=== PATIENT | female | born 1970 | race Caucasian/White ===

== ENCOUNTER → 2024-03-12 17:02 | Outpatient (REF) | payer OTHER, SELFPAY | LOC: HWRAD 17:02 | PROVIDERS: ATTENDING PHYSICIAN Internal Medicine Gastroenterology; FAMILY PHYSICIAN Family Medicine | DX: K59.00 Constipation, unspecified (principal) | CPT/HCPCS: 74018 ==

== ENCOUNTER 2024-04-08 06:21 | Day surgery (SDC) | payer OTHER, SELFPAY | END 2024-04-08 15:30 | disposition home or self-care (01) | LOC: GI 06:21 | PROVIDERS: ATTENDING PHYSICIAN Internal Medicine Gastroenterology | DX: R93.3 Abnormal findings on diagnostic imaging of other parts of digestive tract (principal); K64.8 Other hemorrhoids; K57.30 Diverticulosis of large intestine without perforation or abscess without bleeding; K63.5 Polyp of colon; K51.30 Ulcerative (chronic) rectosigmoiditis without complications | CPT/HCPCS: 45380; 88305 ==

== ENCOUNTER 2024-04-29 10:40 | Inpatient (IN) | payer OTHER, SELFPAY ==
[2024-04-22 09:07] LABS: Hematocrit 40.9 % (37.0-47.0); Hemoglobin 13.8 g/dL (12.0-16.0); Mean Corp Hgb Conc. 33.7 g/dL (33.0-37.0); Mean Corpuscular Hgb 29.2 pg (27.0-31.0); Mean Corpuscular Volume 86.5 fL (81.0-99.0); Mean Platelet Volume 9.5 fL (7.4-10.4); Platelet Count 288 10^3/uL (130-400); Red Blood Cell Count 4.73 10^6/uL (4.20-5.40); Red Cell Dist. Width 13.4 % (11.5-14.5); White Blood Cell Count 6.3 10^3/uL (4.8-10.8)
[2024-04-22 09:14] LABS: INR 0.84
[2024-04-22 09:15] LABS: APTT 28.5 Sec (23.4-35.0)
[2024-04-22 10:12] LABS: ALT (SGPT) 25 U/L (0-35); AST (SGOT) 25 U/L (14-36); Albumin 4.5 g/dl (3.5-5.0); Alkaline Phosphatase 89 U/L (38-126); Blood Urea Nitrogen 12 mg/dl (7-17); Calcium 9.6 mg/dl (8.4-10.2); Carbon Dioxide 29 mmol/L (22-30); Chloride 103 mmol/L (98-107); Glucose 112 mg/dl (70-99); Potassium 4.3 mmol/L (3.5-5.1); Sodium 144 mmol/L (135-145); Total Bilirubin 0.5 mg/dl (0.2-1.3); Total Protein 7.3 g/dl (6.3-8.2); eGFR > 60.00
[2024-04-22 10:14] LABS: Glycohemoglobin (HgbA1c) 6.1 % (4.0-5.6)
[2024-04-22 12:41] VITALS: BMI 27.9
[2024-04-29] VITALS (12 sets, daily range): BP systolic 118–138; BP diastolic 67–88; BMI 27.9
[2024-04-29] MEDS: TYLENOL 1000 MG PO (11:10)
[2024-04-29] MEDS: NORMOSOL-R/PLASMALYTE-A 1000 IV ×2 (11:10→17:28)
[2024-04-29] MEDS: ENTEREG 12 MG PO (11:11)
[2024-04-29] MEDS: HEPARIN 5000 UNITS SC (11:11)
--- NOTE | 2024-04-29 16:18 | W.IMMPOSTOP ---
Surgical Immed Post Op Note
-
Primary Surgeon: Carter Toth MD
Assistants: TONJA Isaac and SILVIA Jurado
Pre-op Diagnosis: Sigmoid stricture
Post-op Diagnosis: Same
Procedure Performed: Robotic sigmoid colectomy with intracorporeal anastomosis
Anesthesia Type: GET
Specimen / Cultures: Sigmoid colon (suture is proximal)
Estimated Blood Loss: 15cc
Complications: None
Operative Findings: Markedly redundant sigmoid colon with pelvic adhesions from previous hysterectomy
28mm EEA
Normal leak test
Patient's updated via telephone
[2024-04-29] MEDS: TORADOL 15 MG IV ×2 (17:07→23:48)
[2024-04-29] MEDS: ROXICODONE 5 MG PO (19:46)
[2024-04-29] MEDS: TYLENOL 650 MG PO ×2 (19:46→23:47)
[2024-04-29] MEDS: MYLICON 80 MG PO (19:46)
[2024-04-29] MEDS: CYMBALTA DELAYED RELEASE 20 MG PO (21:39)
[2024-04-29] MEDS: DETROL LA 4 MG PO (21:39)
[2024-04-29] MEDS: LIPITOR 10 MG PO (21:39)
[2024-04-30] MEDS: NORMOSOL-R/PLASMALYTE-A 1000 IV (02:30)
[2024-04-30 03:30] VITALS: BP 118/74
--- NOTE | 2024-04-30 04:16 | DOWNTIME ---
There was a [employer] Rn Spine Downtime on 04/30/2024 from 0200 to 04/30/2024 at 0325 . Downtime documentation of patient's care, including medication administrations, has been reconciled in the electronic record per guidelines. Refer to the
patient's paper chart under the miscellaneous tab to see printed paper medication records and downtime forms.
[2024-04-30] MEDS: TYLENOL PO (05:05)
[2024-04-30] MEDS: TORADOL 15 MG IV ×2 (06:22→12:41)
[2024-04-30 06:26] LABS: % Basophils 0.1 % (0-2); % Immature Granulocytes 0.7 % (0-0.5); % Lymphocytes 7.6 % (20.5-51.1); % Monocytes 6.5 % (1.7-9.3); % Neutrophils 85.1 % (42.2-75.2); Absolute Immature Granulocytes 0.1 10^3/uL (0-0.05); Absolute Monocytes 0.9 10^3/uL (0.1-0.6); Absolute Neutrophils 11.5 10^3/uL (1.4-6.5); Hematocrit 38.7 % (37.0-47.0); Hemoglobin 12.4 g/dL (12.0-16.0); Mean Corpuscular Hgb 28.2 pg (27.0-31.0); Mean Platelet Volume 9.1 fL (7.4-10.4); Nucleated Red Blood Cells % 0 %; Platelet Count 312 10^3/uL (130-400); Red Cell Dist. Width 13.3 % (11.5-14.5); White Blood Cell Count 13.5 10^3/uL (4.8-10.8)
[2024-04-30 06:47] LABS: Blood Urea Nitrogen 6 mg/dl (7-17); Calcium 8.8 mg/dl (8.4-10.2); Carbon Dioxide 27 mmol/L (22-30); Chloride 104 mmol/L (98-107); Estimated Creatinine Clearance 111 ml/min; Glucose 125 mg/dl (70-99); Potassium 4.4 mmol/L (3.5-5.1); Sodium 140 mmol/L (135-145); eGFR > 60.00
[2024-04-30] MEDS: ENTEREG 12 MG PO ×2 (07:36→20:12)
[2024-04-30] MEDS: TYLENOL 650 MG PO ×5 (07:36→23:56)
[2024-04-30 07:40] VITALS: BP 128/82
--- NOTE | 2024-04-30 10:57 | W.PN.CRS1 ---
Today's Communication / Plan
-
d/c veloz
lovenox
advance diet when passes flatus
Assessment/Plan
-
POD#1 Robotic sigmoid colectomy with intracorporeal anastomosis
-WBC 13.5 as expected post op, labs otherwise normal. Vitals normal.
-OOB as tolerated.
-Okay to shower.
-Continue clears. Advance to fulls once passes flatus. D/C IVFs when tolerating clears.
-Start lovenox tonight for DVT prophylaxis. TEDS/SCDS in place.
-D/C veloz
-OR pathology pending
-Pain control: Tylenol/Toradol standing, Dilaudid PRN.
Subjective Data
Procedure
04/29/2024- Robotic sigmoid colectomy with intracorporeal anastomosis
Subjective Data
Date of Service: April 30, 2024
Patient states she had some cramping which resolved. She has some burping but no flatus yet. She denies nausea or vomiting. She has been out of bed.
Objective Data
-
Vital Signs
Temp Pulse Resp BP Pulse Ox
97.8 F 86 18 128/82 98
04/30/24 07:40 04/30/24 07:40 04/30/24 07:40 04/30/24 07:40 04/30/24 07:40
Intake & Output
04/29/24 04/30/24 05/01/24
06:59 06:59 06:59
Intake Total 2019
Output Total 2274
Balance -255 / -255
Intake:
Oral fluids 720 / 720
IV fluids (Total) 1300 / 1300
normosol 100 / 100
Output:
Urine, [place]oz 2274
Lab Results
12/12/24 05:05
04/30/24 05:05
Physical Exam
-
General: No Acute Distress and AOx3
Abdomen: Soft, Non Distended and Non Tender
Skin: Warm and Dry
Incision: Clear, Dry, Intact
[2024-04-30 12:11] VITALS: BP 137/83
[2024-04-30] MEDS: NORMOSOL-R/PLASMALYTE-A IV (14:10)
[2024-04-30 14:40] VITALS: BP 126/83
--- NOTE | 2024-04-30 14:40 | CM ---
Met with pt at bedside
Pt reports she lives with her in a 2 story home; no steps to enter, FF set-up
Independent, active, drives
DME - none
SNF/HH - no past hx
Has ride at discharge
PCP - Christo Grimaldo
Pharm - [facility]
Plan - anticipate home no needs
[2024-04-30 14:48] LABS: Hematocrit 37.2 % (37.0-47.0); Hemoglobin 12.3 g/dL (12.0-16.0)
[2024-04-30 19:33] VITALS: BP 118/67
[2024-04-30] MEDS: CYMBALTA DELAYED RELEASE 20 MG PO (21:56)
[2024-04-30] MEDS: LIPITOR 10 MG PO (21:56)
[2024-04-30] MEDS: DETROL LA 4 MG PO (21:59)
[2024-04-30 23:05] VITALS: BP 109/63
[2024-05-01] MEDS: TYLENOL 650 MG PO ×4 (04:46→16:43)
[2024-05-01 05:28] VITALS: BMI 27.3
[2024-05-01 08:00] VITALS: BP 143/87
[2024-05-01] MEDS: ENTEREG 12 MG PO (08:07)
[2024-05-01 08:20] LABS: % Basophils 0.5 % (0-2); % Immature Granulocytes 0.2 % (0-0.5); % Lymphocytes 30.1 % (20.5-51.1); % Monocytes 8.7 % (1.7-9.3); % Neutrophils 58.5 % (42.2-75.2); Absolute Basophils 0.1 10^3/uL (0-0.2); Absolute Eosinophils 0.2 10^3/uL (0-0.7); Absolute Lymphocytes 2.8 10^3/uL (1.2-3.4); Absolute Monocytes 0.8 10^3/uL (0.1-0.6); Absolute Neutrophils 5.5 10^3/uL (1.4-6.5); Hematocrit 37.3 % (37.0-47.0); Mean Corp Hgb Conc. 32.2 g/dL (33.0-37.0); Mean Corpuscular Hgb 28.4 pg (27.0-31.0); Mean Corpuscular Volume 88.2 fL (81.0-99.0); Mean Platelet Volume 9.1 fL (7.4-10.4); Nucleated Red Blood Cells % 0 %; Platelet Count 280 10^3/uL (130-400); Red Blood Cell Count 4.23 10^6/uL (4.20-5.40); Red Cell Dist. Width 13.8 % (11.5-14.5); White Blood Cell Count 9.4 10^3/uL (4.8-10.8)
[2024-05-01 08:50] LABS: Blood Urea Nitrogen 8 mg/dl (7-17); Calcium 8.7 mg/dl (8.4-10.2); Carbon Dioxide 30 mmol/L (22-30); Chloride 106 mmol/L (98-107); Estimated Creatinine Clearance 110 ml/min; Glucose 100 mg/dl (70-99); Potassium 3.9 mmol/L (3.5-5.1); Sodium 142 mmol/L (135-145); eGFR > 60.00
--- NOTE | 2024-05-01 09:55 | CM ---
Patient seen at bedside.
No IMM needed.
Advance to full liq diet
PLAN: home, no needs
to transport
--- NOTE | 2024-05-01 11:16 | W.PN.CRS1 ---
Today's Communication / Plan
-
low residue
restart lovenox/toradol
possible d/c later today
Assessment/Plan
-
POD#2 Robotic sigmoid colectomy with intracorporeal anastomosis
-Labs normal. Vitals normal.
-OOB as tolerated.
-Okay to shower.
-Advance to low residue.
-Restart lovenox. TEDS/SCDS in place.
-OR pathology pending
-Pain control: Tylenol/Toradol standing, Dilaudid PRN.
-Possible discharge later today if tolerating a low residue diet.
Subjective Data
Procedure
04/29/2024- Robotic sigmoid colectomy with intracorporeal anastomosis
Subjective Data
Date of Service: May 01, 2024
Patient states she has not had any more bleeding. since yesterday. She denies nausea or vomiting. She is having bowel movements and flatus.
Objective Data
-
Vital Signs
Temp Pulse Resp BP Pulse Ox
98.2 F 80 16 143/87 99
05/01/24 08:00 05/01/24 08:00 05/01/24 08:00 05/01/24 08:00 05/01/24 08:00
Intake & Output
04/30/24 05/01/24 05/02/24
06:59 06:59 06:59
Intake Total 2019 480 / 480
Output Total 2274
Balance -255 / -255 480 / 480
Intake:
Oral fluids 720 / 720 480 / 480
IV fluids (Total) 1300 / 1300 0 / 0
normosol 100 / 100
IV piggybacks 0 / 0
Output:
Urine, [place] 2274 / 2274
Other:
Number of approximated MODERATE 4
amounts of urine
Lab Results
05/01/24 07:12
05/01/24 07:12
Physical Exam
-
General: No Acute Distress and AOx3
Abdomen: Soft, Non Distended and Non Tender
Skin: Warm and Dry
Incision: Clear, Dry, Intact
[2024-05-01] MEDS: TORADOL IV (13:25)
[2024-05-01 14:50] VITALS: BP 129/97
[2024-05-01 16:11] LABS: Hematocrit 40.7 % (37.0-47.0); Hemoglobin 13.2 g/dL (12.0-16.0)
--- NOTE | 2024-05-01 16:48 | PTCARENOTE ---
Patient rang for RN around 1430 after having a BM. BM was loose, brown, but blood tinged. Patient feeling good. Tolerated lunch. Pain controlled. Diane Garcia, PAC made aware of all findings. H/H ordered. Results reported to Dr. Toth around 1645.
Dr. Toth also made aware of blood tinged stool. Dr. Toth stated patient was okay for discharge.
--- NOTE | 2024-05-01 16:50 | W.DCSUMMARY ---
Discharge Summary
Discharge Data
Date of Admission: 04/29/24
Date of Discharge: 05/01/24
-
Pending Results: Yes
Additional Pending Results:
pathology
Discharge Plan
-
Patient Disposition: Home (Routine Discharge)
Discharge Diagnosis/Procedures: Robotic sigmoid colectomy with intracorporeal anastomosis
Diet: Low Residue
Activity: No strenuous activity
Additional Activity: No lifting over 10lbs (gallon of milk)
Driving Restrictions: No driving for 1 week
Bathing Restrictions: OK to Shower
Wound Care: Allow glue to naturally fall off. Do not pick at incisions.
Instructions: Low-fiber diet
Referrals:
Killian Toth MD [Active] - in two weeks
Christo Grimaldo DO [Family Provider] -
Additional Discharge Medication Instructions: Tylenol or Ibuprofen as needed for pain. Maximum dose of Ibuprofen is 3,200mg in 24 hours. Maximum dose of Tylenol is 4,000mg in 24 hours.
Prescriptions:
Continued
multivitamin Tablet
1 tab PO DAILY
acetaminophen [Tylenol] 325 mg Tablet
650 mg PO Q4H PRN (Reason: pain)
atorvastatin 10 mg Tablet
10 mg PO HS
duloxetine [Cymbalta] 20 mg Capsule,Delayed Release(Dr/Ec)
20 mg PO HS
Gemtesa 75 mg Tablet
75 mg PO HS
Vitamin D3
1 dose PO DAILY
calcium
1 dose PO DAILY
Entyvio 300 mg Recon Soln
300 mg IV Q8W
Discontinued
polyethylene glycol 3350 [Miralax] 17 gram Powder In Packet
17 g PO BID
metronidazole 500 mg Tablet
500 mg PO .
Rx Instructions:
To be taken day before surgery as directed
neomycin 500 mg Tablet
1,000 mg PO .[phone]
Rx Instructions:
To be taken day before surgery as directed.
Sutab 1.479-0.188- 0.225 gram Tablet
24 tab PO PER PKG DIR
Rx Instructions:
Bowel Prep for surbery
Discharge Orders:
Discharge Patient (As Directed); Ordered 05/01/24
Ordered By: Killian Toth
Discharge Date and Time
Print Language: [email or web address]
== END 2024-05-01 17:50 | disposition home or self-care (01) | DRG 331 ==
LOC: 2 SOUTH 10:40
PROVIDERS: Physician Assistant; ADMITTING PHYSICIAN Surgery; FAMILY PHYSICIAN Family Medicine
PROC: 8E0W8CZ Robotic Assisted Procedure of Trunk Region, Via Natural or Artificial Opening Endoscopic (ICD-10-PCS; 2024-04-29)
PROC: 0DTNFZZ Resection of Sigmoid Colon, Via Natural or Artificial Opening With Percutaneous Endoscopic Assistance (ICD-10-PCS; 2024-04-29)
DX: K56.50 Intestinal adhesions [bands], unspecified as to partial versus complete obstruction (principal); N99.4 Postprocedural pelvic peritoneal adhesions; Z90.710 Acquired absence of both cervix and uterus; F41.9 Anxiety disorder, unspecified; E78.00 Pure hypercholesterolemia, unspecified; Z83.719 Family history of colon polyps, unspecified; Z83.79 Family history of other diseases of the digestive system
CPT/HCPCS: 88307; 36415; 80048; 80053; 83036; 85014; 85018; 85025; 85027; 85610; 85730; 86850; 86900; 86901; 93005; J1335

== ENCOUNTER 2025-03-11 06:25 | Day surgery (SDC) | payer OTHER, SELFPAY ==
[2025-03-11 07:30] LABS: Glucose - Point of Care 119 mg/dl (70-99)
== END 2025-03-11 09:40 | disposition home or self-care (01) ==
LOC: GI 06:25
PROVIDERS: ATTENDING PHYSICIAN Internal Medicine Gastroenterology
DX: Z12.11 Encounter for screening for malignant neoplasm of colon (principal); K51.50 Left sided colitis without complications; K51.30 Ulcerative (chronic) rectosigmoiditis without complications; Z98.0 Intestinal bypass and anastomosis status; Z86.0101 Personal history of adenomatous and serrated colon polyps
CPT/HCPCS: 45380; 82962; 88305